=== PATIENT | female | born 2000 | race Caucasian/White ===

== ENCOUNTER 2021-01-07 22:32 | Inpatient (IN) | payer BC ==
[~2021-01-07] VITALS: Ht 170.2 cm; Wt 92.4 kg
--- NOTE | ~2021-01-07 | EKG ---
[address] [address] ELECTROCARDIOGRAM REPORT Name: LYLA ROBERTS Room #: 350-[facility] IN M.R.#: [id number] Admission: 01/08/21 Attend Phys: Brandon Rico MD Discharge: 01/08/21 Date of : [birth year] Report #: [id number] [facility] ED Test Date: 2021-01-07 Test Time: 22:41:02 Pat Name: LYLA ROBERTS Department: Room: 350 P Gender: F Global Manager: MPARK : 2000 Requested By: Brandon Rico Order Number: [id number] MD: Measurements Intervals Angela Rate: 132 P: 74 RI: 87 QRS: 78 QRSD: 92 T: 53 QT: 312 QTc: 463 Interpretive Statements Sinus tachycardia Probable left atrial enlargement RSR' in V1 or V2, probably normal variant No previous ECG available for comparison [email or web address] By: 40 40 Epiphany Epiphany, /EPI
--- NOTE | ~2021-01-07 | EMS ---
[facility] [address] [place] [address] EMS Patient Care Report Name: LYLA ROBERTS Room #: 350-P ADM IN M.R.#: [id number] Admission: 01/08/21 Attend Phys: Brandon Rico MD Discharge: Date of : [birth year] Report #: [id number] THIS REPORT FOR: //name// Report Transmitted: 01/08/2021 00:43 EMS Care Summary [place], [place]/[facility] Incident [id number] @ 01/07/2021 21:58 Incident Location [address] [place] [id number] Patient LYLA HENNESSY Female, 20 Years 2000 Patient Address [address] [place] [address] [place] [address] Patient History None Reported, Patient Allergies Cat dander allergy,Horse dander allergy,Seasonal allergy, Patient Medications Claritin, Other, Chief Complaint Allergic Reaction Disposition Transported No Lights/[place] Reason Allergic Reaction/Stings Transported To [facility] Narrative Arrived on the scene, with P45, for a 20 y/o female that is sitting on the ground. Fire had the Pt start to walk towards the cot as we were pulling it to them. Pt is having a hard time walking and is feeling dizzy. Pt said that she at what she normally ate at 1800 tonight and felt fine. Pt said that she [facility] [address] [place] [address] EMS Patient Care Report Name: LYLA ROBERTS Room #: 350-P [facility] IN M.R.#: [id number] Admission: 01/08/21 Attend Phys: Brandon Rico MD Discharge: Date of : [birth year] Report #: [id number] hasn't had any drugs or alcohol tonight. Pt said that she was playing volleyball and started to get hives on her body. Brother said that she was given 2 pills of Benadryl about 30 minutes ago, and then 2 liquid pills of Benadryl about 15 minutes ago. Pt was given a total of 100mg of Benadryl in a 30 minutes time frame. Pt said that she is feeling better. See Pt Assessment Hypotension See Flowchart. Pt was in a sitting position on the cot. Laid the Pt's head down and lifted her feet up. Established an IV and put the Pt onto the monitor. Transported to the hospital. Enroute, Pt's BP was getting a little better but still low. Started fluids. Pressure got better after some fluids. No other changes or incidents. Slide the Pt from the cot to the bed. Transferred care to receiving facility. Initial Vitals @22:26P: 138,R: 20,BP: 103/69,Pain: 0/10,GCS: 15,SpO2: 95,Revised Trauma: 12,MT Suspected: false @22:20P: 143,R: 20,BP: 87/59,Pain: 0/10,GCS: 15,SpO2: 96,Revised Trauma: 11,MT Suspected: false @22:10P: 135,R: 20,BP: 73/44,Pain: 0/10,GCS: 15,Glucose: 100,CO: 0,SpO2: 95,Revised Trauma: 10, Assessments @22:06MENTAL:Person Oriented,Time Oriented,Event Oriented,Place Oriented,SKIN:Pale,HEENT:Head/Face: No Abnormalities,Eyes: No Abnormalities,Neck/Airway: No Abnormalities,LUNG SOUNDS:General: No Abnormalities,Left Upper: No Abnormalities,Right Upper: No Abnormalities,Left Lower: No Abnormalities,Right Lower: No Abnormalities,ABDOMEN:General: No Abnormalities,Left Upper: No Abnormalities,Right Upper: No Abnormalities,Left Lower: No Abnormalities,Right Lower: No Abnormalities,PELVIS//GI:No Abnormalities,EXTREMITIES:Left Arm: No Abnormalities,Right Arm: No Abnormalities,Left Leg: No Abnormalities,Right Leg: No Abnormalities,PULSE:NEURO:No Abnormalities, Impression Hypotension Procedures @22:06ALS AssessmentResponse: UnchangedSucceeded@22:10Oxygen FlowRate: 2 Device: CO2 Nasal Cannula Response: ImprovedSucceeded@22:083-Lead ECGResponse: UnchangedSucceeded@22:11Saline Lock 5cc (20 ga) Site: Hand-RightResponse: UnchangedSucceeded@22:21Normal Saline (.9% NaCl) 200cc () Site: Hand-RightResponse: [place] [address] EMS Patient Care Report Name: ZULEMA ROBERTSSA PALOMINO Room #: 350-P [facility] IN M.R.#: [id number] Admission: 01/08/21 Attend Phys: Brandon Rico MD Discharge: Date of : [birth year] Report #: [id number] Timeline 21:56,Call Received 21:56,Dispatch Notified 21:58,Dispatched 21:58,En Route 22:05,On Scene 22:06,At Patient 22:06,ALS Assessment,Response: UnchangedSucceeded, 22:08,3-Lead ECG,Response: UnchangedSucceeded, 22:10,BP: 73/44 M,PULSE: 135,RR: 20 R,SPO2: 95 Ox,ETCO2: ,B,PAIN: 0,GCS: 15, 22:10,Oxygen FlowRate: 2 Device: CO2 Nasal Cannula Response: ImprovedSucceeded, 22:11,Saline Lock 5cc 20 ga Site: Hand-Right,Response: UnchangedSucceeded, 22:19,Depart Scene 22:20,BP: 87/59 M,PULSE: 143,RR: 20 R,SPO2: 96 Ox,ETCO2: ,BG: ,PAIN: 0,GCS: 15, 22:21,Normal Saline (.9% NaCl) 200cc Site: Hand-Right,Response: UnchangedSucceeded, 22:26,BP: 103/69 M,PULSE: 138,RR: 20 R,SPO2: 95 Ox,ETCO2: ,BG: ,PAIN: 0,GCS: 15, 22:37,At Destination 22:52,Call Closed Disclaimer v1.1 Copyright 2020 [employer] This EMS Care Summary contains data elements from the applicable legal record (which may be displayed differently). It is designed to provide pertinent information for the following purposes: continuity of care, clinical quality, and state data reporting. The complete legal record is available to ED staff and administrators of the receiving hospital in [employer]'s Patient Tracker. All data is provided "as is."
[2021-01-07 22:33] VITALS: BP 113/70
[2021-01-07] MEDS ORDERED: CLARITIN10 M3 PO (22:56)
[2021-01-07] MEDS ORDERED: MILI 0.25-0.031 EACH PO (22:58)
[2021-01-07] MEDS ORDERED: PEPCID20 MG PO (23:50)
[2021-01-07] MEDS ORDERED: EPIPEN 2-P0.3 MG/0.3 IM (23:50)
[2021-01-07] MEDS ORDERED: PREDNISONE 20 M20 M1 PO (23:50)
[2021-01-07] MEDS ORDERED: DIPHENHIST50 MG PO (23:50)
[2021-01-08] VITALS (17 sets, daily range): BP systolic 81–127; BP diastolic 41–74
[2021-01-08 00:42] LABS: HEMATOCRIT 41.6 % (37.0-47.0); HEMOGLOBIN 13.8 gm/dL (12.0-15.0); MCH 30.8 pg (26.0-34.0); MCHC 33.1 g/dL (28.0-37.0); MCV 92.9 fL (80.0-100.0); PLATELET COUNT 230 thou/uL (150-400); RBC 4.47 mil/uL (4.20-5.00); RDW 12.9 % (10.5-14.5); WBC 27.2 thou/uL (4.0-11.0)
[2021-01-08 00:55] LABS: CALCIUM 7.4 mg/dL (8.5-10.1); CREATININE 1.3 mg/dL (0.6-1.0)
[2021-01-08 00:56] LABS: POTASSIUM 3.8 mmol/L (3.5-5.1)
[2021-01-08 01:01] LABS: ALBUMIN 2.6 g/dL (3.4-5.0); TOTAL BILIRUBIN 0.3 mg/dL (0.2-1.0); TOTAL PROTEIN 5.5 g/dL (6.4-8.2)
[2021-01-08 01:43] LABS: ABSOLUTE NEUTROPHILS 25.3 thou/uL (1.4-8.2); LARGE PLATELETS OCCASIONAL
[2021-01-08 03:23] LABS: URINE BILIRUBIN NEGATIVE (Negative); URINE BLOOD NEGATIVE (Negative); URINE CLARITY CLEAR; URINE COLOR YELLOW; URINE GLUCOSE-RANDOM* NEGATIVE (Negative); URINE KETONES 1+ (Negative); URINE LEUKOCYTES-REFLEX NEGATIVE (Negative); URINE NITRITE-REFLEX NEGATIVE (Negative); URINE PROTEIN (DIPSTICK) NEGATIVE (Negative); URINE SPECIFIC GRAVITY 1.015 (1.005-1.035); URINE UROBILINOGEN 0.2 E.U./dl (0.2-1.0)
== END 2021-01-08 10:15 | disposition home or self-care (01) | DRG 316 ==
LOC: ER 22:32 → EROBS 01-08 00:28 → 3W 01-08 00:28
PROVIDERS: Emergency Medicine; ADMIT Hospitalist; ATTEND Hospitalist
DX: I95.89 Other hypotension (principal); J30.2 Other seasonal allergic rhinitis; L50.9 Urticaria, unspecified; T45.0X5A Adverse effect of antiallergic and antiemetic drugs, initial encounter; Y92.89 Other specified places as the place of occurrence of the external cause
CPT/HCPCS: 10779